=== PATIENT | female | born 1975 ===

== ENCOUNTER 2020-08-18 10:22 | Emergency (ER) | payer OTHER ==
[~2020-08-18] VITALS: Ht 170.2 cm; Wt 68.0 kg
[2020-08-18 10:35] VITALS: BP 162/101
--- NOTE | 2020-08-18 10:57 | RAD ---
EXAM: Right shoulder, 3 views. HISTORY: Fall. Pain. COMPARISON: None. FINDINGS: 3 views of the right shoulder obtained. There is no fracture, dislocation or subluxation. IMPRESSION: No acute osseous finding. Electronically signed by: Katarzyna Coughlin MD (08/18/2020 10:54 AM) [id number]
--- NOTE | 2020-08-18 11:03 | PHYS DOC ---
Past History Past Medical History: Cancer Past Surgical History: , Other Additional Past Surgical Histo: Cancer Alcohol Use: None General Adult EDM: Chief Complaint: SHOULDER INJURY HPI: HPI: 45-year-old female presents with right shoulder pain. The patient was stepping over a baby gate yesterday when she caught her toe and fell against a door with the anterior part of her right shoulder. It rotated her body against the door. She felt a popping sensation has had discomfort in the anterior shoulder since. Her pain is most significant with internal rotation and abduction. She has range of motion is just uncomfortable. She has no history of dislocation. She has had a patellar dislocation in the past. She denies any other injuries or complaints at this time. Review of Systems: Review of Systems: Constitutional: Denies fever or chills Eyes: Denies change in visual acuity HENT: Denies nasal congestion or sore throat Respiratory: Denies cough or shortness of breath Cardiovascular: Denies chest pain or edema GI: Denies abdominal pain, nausea, vomiting, bloody stools or diarrhea : Denies dysuria Musculoskeletal: Right shoulder pain Integument: Denies rash Neurologic: Denies headache, focal weakness or sensory changes Endocrine: Denies polyuria or polydipsia Lymphatic: Denies swollen glands Psychiatric: Denies depression or anxiety Allergies: Allergies: Allergies Coded Allergies Type Severity Reaction Last Updated Verified codeine Allergy Unknown 08/18/20 Yes Physical Exam: PE: Constitutional: Well developed, well nourished, no acute distress, non-toxic appearance. [] HENT: Normocephalic, atraumatic, bilateral external ears normal, oropharynx moist, no oral exudates, nose normal. [] Eyes: PERRLA, EOMI, conjunctiva normal, no discharge. [] Neck: Normal range of motion, no tenderness, supple, no stridor. [] Cardiovascular: Heart rate regular rhythm, no murmur [] Lungs & Thorax: Bilateral breath sounds clear to auscultation [] Abdomen: Bowel sounds normal, soft, no tenderness, no masses, no pulsatile mass es. [] Skin: Warm, dry, no erythema, no rash. [] Back: No tenderness, no CVA tenderness. [] Extremities: Tenderness over the anterior shoulder, no deformity or ecchymosis, negative Yergason's. Pain with empty can. [] Neurologic: Alert and oriented X 3, normal motor function, normal sensory fun ction, no focal deficits noted. [] Psychologic: Affect normal, judgement normal, mood normal. [] Current Patient Data: Vital Signs: Vital Signs Date Time Temp Pulse Resp B/P (MAP) Pulse Ox O2 Delivery O2 Flow Rate FiO2 08/18/20 10:35 97.8 77 16 162/101 (121) 98 Room Air EKG: EKG: [] Radiology/Procedures: Radiology/Procedures: [] Impressions: EXAM: Right shoulder, 3 views. HISTORY: Fall. Pain. COMPARISON: None. FINDINGS: 3 views of the right shoulder obtained. There is no fracture, dislocation or subluxation. IMPRESSION: No acute osseous finding. Electronically signed by: Katarzyna Coughlin MD (08/18/2020 10:54 AM) [id number] DICTATED AND SIGNED BY: KATARZYNA COUGHLIN MD DATE: 08/18/20 1054 CC: SHAHLA VILLASEÑOR DO; PCP,NO ~ Heart Score: Risk Factors: Risk Factors: DM, Current or recent (<one month) smoker, HTN, HLP, family history of CAD, obesity. Risk Scores: Score 0 - 3: 2.5% MACE over next 6 weeks - Discharge Home Score 4 - 6: 20.3% MACE over next 6 weeks - Admit for Clinical Observation Score 7 - 10: 72.7% MACE over next 6 weeks - Early Invasive Strategies Course & Med Decision Making: Course & Med Decision Making Pertinent Labs and Imaging studies reviewed. (See chart for details) The patient's x-ray is negative for fracture. Based on my exam, I believe she just a bit bruised up. She likely has some mild internal swelling that should resolve with icing and ibuprofen therapy. She is stable for discharge at this time. If she continues to have significant pain in a week, she will seek further evaluation and physical therapy. [] Dragon Disclaimer: Zenobia Disclaimer: This electronic medical record was generated, in whole or in part, using a voice recognition dictation system. Departure Departure: Impression: Primary Impression: Right anterior shoulder pain Disposition: 01 DC HOME SELF CARE/HOMELESS Condition: STABLE Referrals: PCP,NO (PCP) Patient Instructions: Shoulder Exercises, Generic, [facility] SHAHLA VILLASEÑOR DO Aug 18, 2020 11:03
== END 2020-08-18 11:17 | disposition home or self-care (01) ==
LOC: ER 10:22
DX: M25.511 Pain in right shoulder (principal); Z88.5 Allergy status to narcotic agent; W18.31XA Fall on same level due to stepping on an object, initial encounter; Y93.89 Activity, other specified; Y92.89 Other specified places as the place of occurrence of the external cause; Y99.8 Other external cause status
CPT/HCPCS: 73030; 99283

== ENCOUNTER → 2021-05-21 | Outpatient (CLI) | payer BC, OTHER ==
--- NOTE | 2021-05-21 15:55 | RAD ---
EXAM: Pelvic sonogram. HISTORY: Cervical cancer. Left lower quadrant pain. TECHNIQUE: Sonographic imaging of the pelvis was performed. COMPARISON: None. FINDINGS: The uterus measures 7.4 x 4.5 x 3.4 cm. The uterus is heterogeneous. No focal lesion is see n. The endometrial stripe measures 4 mm in thickness. The right ovary and right fallopian tube are tolliver rgically absent due to a reported prior tubal ectopic . The left ovary is normal in size and demonstrates normal blood flow. There is a 1.3 cm dominant left ovarian follicle. IMPRESSION: 1. 1.3 cm physiologic dominant left ovarian follicle. 2. Surgically absent right ovary and right fallopian tube. 3. Slightly heterogeneous uterine parenchyma. No mass is seen. The endometrial stripe is normal in ickness. Electronically signed by: Katarzyna Coughlin MD (05/21/2021 3:52 PM) [id number]
== END ==
LOC: US 14:46
PROVIDERS: ATTEND Family Medicine
DX: N88.8 Other specified noninflammatory disorders of cervix uteri (principal); R10.32 Left lower quadrant pain; Z85.41 Personal history of malignant neoplasm of cervix uteri
CPT/HCPCS: 76856

== ENCOUNTER → 2021-06-19 | Outpatient (CLI) | payer BC, OTHER ==
--- NOTE | 2021-06-20 08:49 | RAD ---
INDICATION: 46 years of age asymptomatic female patient presents for screening mammography. TECHNIQUE: Bilateral full field craniocaudal and mediolateral oblique images were obtained using dig ital technique and also analyzed with computer-aided detection software. COMPARISON: None BREAST COMPOSITION: Category B: There are scattered fibroglandular densities. FINDINGS: Benign calcifications are present. The parenchymal pattern appears stable. No suspicious masses, microcalcifications or architectural distortion is present to suggest malignanc y in either breast. The visualized axillae are unremarkable. IMPRESSION: No mammographic evidence of malignancy. RECOMMENDATION: Annual screening mammography is recommended, unless clinically indicated sooner based on symptoms or change in physical exam. BIRADS 2: BENIGN This study was interpreted with the benefit of Computerized Aided Detection (CAD). Patient information is entered into the reminder system with a target due date for the next screening mammogram. Mammography is the most sensitive method for finding small breast cancers, but it does not detect the m all and is not a substitute for careful clinical examination. A negative mammogram does not negate a clinically suspicious finding and should not result in delay in biopsying a clinically suspicious a bnormality. "Our facility is accredited by the [employer] Mammography Program." Electronically signed by: Roque Bills MD (06/20/2021 8:47 AM) [facility]
== END ==
LOC: MAMMO 08:51
PROVIDERS: ATTEND Family Medicine
DX: Z12.31 Encounter for screening mammogram for malignant neoplasm of breast (principal)
CPT/HCPCS: 77067